=== PATIENT | female | born 1980 | race African-American/Black ===

== ENCOUNTER 2019-02-14 18:20 | Emergency (ER) | payer OTHER ==
[~2019-02-14] VITALS: Ht 170.2 cm; Wt 84.9 kg
[2019-02-14] MEDS ORDERED: KEPP1TAB PO (18:29)
[2019-02-14] MEDS ORDERED: MIRT1TAB17 PO (18:29)
[2019-02-14] MEDS ORDERED: levETIRAcetam 250MG TABLET (KEPPRA) PO ONE (20:15)
[2019-02-14] MEDS ORDERED: MIRTAZAPINE 15 MG TAB PO ONE (20:15)
[2019-02-14 20:45] VITALS: BP 126/83
== END 2019-02-14 20:47 | disposition home or self-care (01) ==
LOC: M ED 18:20
DX: G40.909 Epilepsy, unspecified, not intractable, without status epilepticus (principal); Z91.120 Patient's intentional underdosing of medication regimen due to financial hardship

== ENCOUNTER 2022-11-17 18:15 | Emergency (ER) | payer OTHER ==
[~2022-11-17] VITALS: Ht 170.2 cm; Wt 86.4 kg
[~2022-11-17 18:15] MED LIST: KEPP1TAB PO; MIRT1TAB17 PO
[2022-11-17] MEDS ORDERED: MIRTAZAPINE 15 MG TAB PO STA (19:02)
[2022-11-17] MEDS ORDERED: levETIRAcetam 250MG TABLET (KEPPRA) PO ONE (19:05)
[2022-11-17] MEDS ORDERED: MIRT1TAB17 PO (19:14)
[2022-11-17] MEDS ORDERED: KEPP1TAB PO (19:14)
[2022-11-17 19:30] VITALS: BP 138/78; TEMP 97.8; O2SAT 99
== END 2022-11-17 19:51 | disposition home or self-care (01) ==
LOC: M ED 18:15
DX: G40.909 Epilepsy, unspecified, not intractable, without status epilepticus (principal); F41.9 Anxiety disorder, unspecified; F32.9 Major depressive disorder, single episode, unspecified; F17.210 Nicotine dependence, cigarettes, uncomplicated